=== PATIENT | female | born 1930 | race Caucasian/White ===

== ENCOUNTER 2020-06-16 12:50 | Observation (INO) ==
--- NOTE | 2020-06-16 14:26 | Emergency Department Note ---
Impression & Plan Cellulitis of both lower extremities, Chest pain, CKD (chronic kidney disease) ED Provider Note NAME: STACY RIBEIRO AGE: 89 SEX: F ARRIVES VIA: Walk-In INFORMANT: Patient, ED PROVIDER(S): Bentley Shaver MD CHIEF COMPLAINT: Cellulitis PLAN: Disposition: Admit MEDICAL DECISION MAKING: The patient is a pleasant 89-year-old woman with a past medical history of CHF who presents emergency department for evaluation and admission for bilateral lower extremity cellulitis have to be seen by her doctor on Wednesday urged to come to the hospital then but she reported she needed to be home for her son's birthday now presents accompanied by her daughter. She reports also having intermittent chest pain and shortness of breath over the past 6 months but does not have any chest pain or shortness of breath at this time. She also reports she was told her TSH was very elevated. Reports taking her thyroid medicine as prescribed. She denies any fevers, chills, cough, body aches, nausea, vomiting, diarrhea. She is agreeable to be admitted now. On arrival patient is no acute distress, afebrile stable vital signs. She has 2+ bilateral lower extremity pitting edema with erythema warmth and tenderness up till the proximal thigh bilaterally. There is serous weeping of both lower legs. EKG without evidence of acute ischemia. CXR negative for acute process. WBC, H/H, platelets wnl. Chemistry without acidosis. Lactate wnl. Potassium 3.3. AST 72, nonspecific. LFTs and electrolytes unremarkable. Troponin negative/undetectable. BNP wnl. TSH 97 however Free T4 only slightly low at 0.79 UA negative for infection. Given cellulitis encompassing at 2/3 of both legs in this elderly patient with comorbidities, reasonable to admit for further management. Order for Zosyn and Vancomycin to initiate treatment. Case was discussed with Dr. Vazquez, [facility] hospitalist, who will evaluate the patient for admission. Doppler ordered and performed en route to the floor and was negative. Triage Nursing notes reviewed and agree them. Additional history obtained from [facility] records. Prior medical records reviewed Vital Signs: reviewed and remarkable for no significant abnormalities Differential diagnosis: Cellulitis, abscess, MRSA infection, DVT, necrotizing fasciitis, dermatitis, drug eruption, allergic reaction, as well as other pathologies. ER treatment provided: See below. Diagnostics interpreted by me: ECG: NSR, 70 bpm, no ectopy, no overt ST elevation or depression. Cardiac Monitoring: An order for continuous cardiac monitoring was placed and demonstrated NSR, 70 bpm, no ectopy, Laboratory studies: See below Imaging studies: XR chest 1V portable HISTORY: 89 years-old Female SEPSIS acute sepsis COMPARISON: None TECHNIQUE: Portable AP view of the chest FINDINGS: Cardiac silhouette is moderately enlarged. Calcified plaque of the thoracic aorta. Mild right hemidiaphragmatic elevation. There is suggestion mild pleural thickening at the apices. No pneumothorax, pleural effusion, airspace consolidation or overt pulmonary edema. Degenerative changes of the shoulders and spine. IMPRESSION: Cardiomegaly without acute process. -- BILATERAL LOWER EXTREMITY VENOUS DOPPLER HISTORY: Acute pain and swelling of the lower extremities BLE swelling, pain COMPARISON STUDY: None. FINDINGS: There is normal compressibility, flow, and augmentation within the bilateral lower extremity deep venous systems. Subcutaneous edema of the lower legs. IMPRESSION: No DVT within the right or left lower extremity. Consultation(s): Case was discussed with Dr. Vazquez, [facility] hospitalist, who will evaluate the patient for admission. HPI: The patient is a pleasant 89-year-old woman with a past medical history of CHF who presents emergency department for evaluation and admission for bilateral lower extremity cellulitis have to be seen by her doctor on Wednesday urged to come to the hospital then but she reported she needed to be home for her son's birthday now presents accompanied by her daughter. She reports also having intermittent chest pain and shortness of breath over the past 6 months but does not have any chest pain or shortness of breath at this time. She also reports she was told her TSH was very elevated. Reports taking her thyroid medicine as prescribed. She denies any fevers, chills, cough, body aches, nausea, vomiting, diarrhea. She is agreeable to be admitted now. ROS: See above HPI for pertinent positives & negatives. A total of 10 systems reviewed and were otherwise negative. PAST MEDICAL HISTORY:See Below PAST SURGICAL HISTORY:See Below FAMILY HISTORY:See Below SOCIAL HISTORY:See Below HOME MEDICATIONS:See Below ALLERGIES:See Below VITALS:See Below PHYSICAL EXAMINATION: GENERAL: Awake, alert, fatigued-appearing, in no distress HENT: Normocephalic, atraumatic. Oropharynx unremarkable. EYES: Normal conjunctiva. Sclera non-icteric. NECK: Supple. No nuchal rigidity. FROM. No JVD. RESPIRATORY: Clear to auscultation. CARDIAC: Regular rate, normal rhythm. Extremities warm and well perfused. Pulses equal. ABDOMEN: Soft, non-distended. No tenderness to palpation. No rebound or guarding. No masses. RECTAL: Deferred. MUSCULOSKELETAL: Chest examination reveals no tenderness. The back is symmetrical on inspection without obvious abnormality. There is no CVA tenderness to palpation. No joint edema. LOWER EXTREMITIES: 2+ bilateral lower extremity pitting edema with erythema warmth and tenderness up till the proximal thigh bilaterally. There is serous weeping of both lower legs. NEURO: Normal sensorium. No sensory or motor deficits noted. SKIN: No rash or jaundice noted. ED COURSE: Critical Care: I have personally spent greater than 35 minutes of critical care time in the direct management of this patient. This includes bedside care, interpretation of diagnostic studies, and testing, discussion with consultants, patient, and family members, and other required patient management activities. This 35 minutes is in excess of all separately billable procedures. Bentley Shaver MD Past Med/Surg History Medical History CKD (chronic kidney disease) HTN (hypertension) Hypothyroidism Social History Smoking Status: Never smoker Hx Alcohol Use: No Hx Substance Use: No Preferred Language: [place] Communication Ability: Effective Child Adolescent Care Required: No Beliefs That Will Affect Care: None Current Living Situation: Family Other Information That Helps Us Care for You: No Feels Safe at Home: Yes Safety Concerns: Feels Safe At This Time Assistive Devices: Glasses and Walker Allergies Allergies Allergy/AdvReac Type Severity Reaction Status Date / Time No Known Allergies Allergy Verified 06/16/20 15:30 Home Meds Home Medications Medication Instructions Recorded Confirmed cephalexin 500 mg PO BID 06/16/20 06/16/20 furosemide 40 mg PO QAM 06/16/20 06/16/20 levothyroxine 100 mcg PO QAM 06/16/20 06/16/20 lisinopril-hydrochlorothiazide 1 tab PO DAILY 06/16/20 06/16/20 potassium chloride 10 meq PO DAILY 06/16/20 06/16/20 Results & Data (ED) Vital Signs Vital Signs - 24 hr 06/16/20 12:57 06/16/20 13:35 06/16/20 13:45 Temperature 36.8 C Temperature Source Oral Pulse Rate 69 71 71 Pulse Rate from SpO2 Sensor 71 71 Respiratory Rate 18 24 16 Respiratory Effort / Characteristics Non-Labored Spontaneous Respiratory Depth Normal Blood Pressure 140/85 146/75 H Blood Pressure Mean 103 103 Pulse Oximetry 98 96 95 Oxygen Delivery Method Room Air Sepsis Recent Fever Within 48 Hours No Sepsis New/Unexplained Change in Mental Status N/A Sepsis Action Taken by Nursing No Action Required 06/16/20 14:00 06/16/20 14:15 06/16/20 14:30 Temperature Temperature Source Pulse Rate 74 77 75 Pulse Rate from SpO2 Sensor 74 77 76 Respiratory Rate 18 21 20 Respiratory Effort / Characteristics Respiratory Depth Blood Pressure 142/94 H 157/75 H Blood Pressure Mean 119 90 Pulse Oximetry 97 98 97 Oxygen Delivery Method Sepsis Recent Fever Within 48 Hours Sepsis New/Unexplained Change in Mental Status Sepsis Action Taken by Nursing Laboratory Data Attestation: I reviewed the patient's lab results. Result diagrams: 06/16/20 13:30 06/16/20 13:30 Lab Results 06/16/20 06/16/20 06/16/20 Range/Units 13:30 13:30 13:30 WBC 8.20 (4.8-10.8) K/uL RBC 4.29 (4.2-5.4) M/uL Hgb 13.3 (12.0-16.0) g/dL Hct 40.3 (37-47) % MCV 93.9 (80-100) fL MCH 31.0 (25-34) pg MCHC 33.0 (32-36) g/dL RDW Std Deviation 53.2 H (36.4-46.3) fL RDW Coeff of Mabel 15.5 H (11.5-14.5) % Plt Count 289 (130-400) K/uL MPV 10.9 H (7.4-10.4) fL Immature Gran % (Auto) 0.6 % Neut % (Auto) 69.3 % Lymph % (Auto) 17.4 % [place] % (Auto) 11.3 % Eos % (Auto) 1.0 % Baso % (Auto) 0.4 % Neut # (Auto) 5.68 (1.4-6.5) K/uL Lymph # (Auto) 1.43 (1.2-3.4) K/uL [place] # (Auto) 0.93 H (0.11-0.59) K/uL Eos # (Auto) 0.08 (0-0.5) K/uL Baso # (Auto) 0.03 (0-0.2) K/uL Immature Gran # (Auto) 0.05 H (0.00-0.02) K/uL PT 10.7 (9.0-12.0) Seconds INR 1.0 (0.9-1.1) APTT 29.3 (21.0-31.0) Seconds PTT Ratio 1.1 D-Dimer (0-500) ug/L FEU Sodium (136-145) mmol/L Potassium (3.5-5.1) mmol/L Chloride (98-107) mmol/L Carbon Dioxide (21-32) mmol/L Anion Gap (3-11) BUN (7-18) mg/dl Creatinine (0.6-1.2) mg/dl Est Cr Clr Drug Dosing Est GFR ( Amer) Est GFR (Non-Af Amer) BUN/Creatinine Ratio (10-20) Glucose (70-99) mg/dl Lactate (0.4-2.0) mmol/L Calcium (8.5-10.1) mg/dl Magnesium (1.8-2.4) mg/dl Total Bilirubin (0.2-1) mg/dl AST (15-37) U/L ALT (12-78) U/L Alkaline Phosphatase (45-117) U/L Troponin I (0-0.045) ng/ml NT-Pro-B Natriuret Pep (0-1800) pg/ml Total Protein (6.4-8.2) gm/dl Albumin (3.4-5.0) gm/dl Globulin (2.5-4.0) gm/dl Albumin/Globulin Ratio (0.9-2) Lipase (73-393) U/L Procalcitonin < 0.05 (0-0.5) ng/ml TSH (0.300-4.500) uIu/ml Free T4 (0.8-1.6) ng/dl 06/16/20 06/16/2006/16/20 Range/Units 13:30 13:30 14:50 WBC (4.8-10.8) K/uL RBC (4.2-5.4) M/uL Hgb (12.0-16.0) g/dL Hct (37-47) % MCV (80-100) fL MCH (25-34) pg MCHC (32-36) g/dL RDW Std Deviation (36.4-46.3) fL RDW Coeff of Mabel (11.5-14.5) % Plt Count (130-400) K/uL MPV (7.4-10.4) fL Immature Gran % (Auto) % Neut % (Auto) % Lymph % (Auto) % [place] % (Auto) % Eos % (Auto) % Baso % (Auto) % Neut # (Auto) (1.4-6.5) K/uL Lymph # (Auto) (1.2-3.4) K/uL [place] # (Auto) (0.11-0.59) K/uL Eos # (Auto) (0-0.5) K/uL Baso # (Auto) (0-0.2) K/uL Immature Gran # (Auto) (0.00-0.02) K/uL PT (9.0-12.0) Seconds INR (0.9-1.1) APTT (21.0-31.0) Seconds PTT Ratio D-Dimer 1470 H* (0-500) ug/L FEU Sodium 139 (136-145) mmol/L Potassium 3.3 L (3.5-5.1) mmol/L Chloride 103 (98-107) mmol/L Carbon Dioxide 33 H (21-32) mmol/L Anion Gap 3.0 (3-11) BUN 36 H (7-18) mg/dl Creatinine 1.13 (0.6-1.2) mg/dl Est Cr Clr Drug Dosing Not Reportable Est GFR ( Amer) 49.9 Est GFR (Non-Af Amer) 43.1 BUN/Creatinine Ratio 32.1 H (10-20) Glucose 93 (70-99) mg/dl Lactate 0.8 (0.4-2.0) mmol/L Calcium 9.4 (8.5-10.1) mg/dl Magnesium 2.1 (1.8-2.4) mg/dl Total Bilirubin 0.7 (0.2-1) mg/dl AST 72 H (15-37) U/L ALT 60 (12-78) U/L Alkaline Phosphatase 73 (45-117) U/L Troponin I < 0.015 (0-0.045) ng/ml NT-Pro-B Natriuret Pep 136 (0-1800) pg/ml Total Protein 7.7 (6.4-8.2) gm/dl Albumin 3.7 (3.4-5.0) gm/dl Globulin 4.0 (2.5-4.0) gm/dl Albumin/Globulin Ratio 0.9 (0.9-2) Lipase 253 (73-393) U/L Procalcitonin (0-0.5) ng/ml TSH 97.600 H (0.300-4.500) uIu/ml Free T4 0.79 L (0.8-1.6) ng/dl Administered Medications Heparin Sodium (Porcine) (Heparin Sod 5,000 Unit/0.5 Ml Vial) 5,000 units SQ Q8 DAMI Stop: 07/16/20 21:59 Last Admin: 06/16/20 21:23 Dose: 5,000 units Documented by: [id number] Piperacillin Sod/Tazobactam (Sod 3.375 gm/ Dextrose) 115 mls @ 28.75 mls/hr IV [facility]; Protocol Stop: 06/23/20 17:14 Last Infusion: 06/16/20 23:46 Dose: 0 mls/hr Documented by: [id number] Admin: 06/16/20 19:46 Dose: 28.8 mls/hr Documented by: [id number] Discontinued Medications Piperacillin Sod/Tazobactam Sod (Zosyn) 4.5 gm in 120 mls @ 240 mls/hr IV NOW ONE Stop: 06/16/20 15:27 Last Infusion: 06/16/20 15:55 Dose: 0 mls/hr Documented by: [id number] Admin: 06/16/20 15:13 Dose: 240 mls/hr Documented by: [id number] Vancomycin HCl 1,250 mg/ (Sodium Chloride) 525 mls @ 200 mls/hr IV NOW ONE Stop: 06/16/20 18:11 Last Infusion: 06/16/20 19:07 Dose: 0 mls/hr Documented by: [id number] Admin: 06/16/20 16:20 Dose: 200 mls/hr Documented by: [id number] Miscellaneous Information (Patient's Allergy Info Needs Entered) 1 ea N/A Q30M DAMI Stop: 06/16/20 17:46 Last Admin: 06/16/20 18:04 Dose: Not Given Documented by: [id number] Admin: 06/16/20 15:37 Dose: 1 ea Documented by: [id number] Potassium Chloride (Potassium Chloride Crtab 20 Meq Tabcr) 20 meq PO NOW STA Stop: 06/16/20 15:15 Last Admin: 06/16/20 15:35 Dose: 20 meq Documented by: [id number] Discharge Plan Visit Data Chief Complaint: Illness Stated Complaint: CHF, THYROID@100, WHITE BC HIGH, INECTION, ED Provider: Bentley Shaver Discharge Problem: Cellulitis of both lower extremities, Chest pain, CKD (chronic kidney disease) Patient Disposition: Admitted As Inpatient Discharge Instructions Interventions: ED Discharge Assessment Last Done: 06/16/20 16:32
[2020-06-16 14:29] LABS: Basophils # (auto) 0.03 K/uL (0-0.2); Basophils % (auto) 0.4 %; Eosinophils # (auto) 0.08 K/uL (0-0.5); Hematocrit (blood only) 40.3 % (37-47); Hemoglobin 13.3 g/dL (12.0-16.0); Immature Granulocytes # (auto) 0.05 K/uL (0.00-0.02); Immature Granulocytes % (auto) 0.6 %; Lymphocytes # (auto) 1.43 K/uL (1.2-3.4); Lymphocytes % (auto) 17.4 %; Mean Corpuscular Volume 93.9 fL (80-100); Mean Platelet Volume 10.9 fL (7.4-10.4); Monocytes # (auto) 0.93 K/uL (0.11-0.59); Monocytes % (auto) 11.3 %; Neutrophils # (auto) 5.68 K/uL (1.4-6.5); Neutrophils % (auto) 69.3 %; Platelet Count 289 K/uL (130-400); RDW Coefficient of Variation 15.5 % (11.5-14.5); RDW Standard Deviation 53.2 fL (36.4-46.3); Red Blood Count 4.29 M/uL (4.2-5.4)
[2020-06-16 14:37] LABS: Albumin Level 3.7 gm/dl (3.4-5.0); Aspartate Aminotransferase 72 U/L (15-37); BUN Creatinine Ratio 32.1 (10-20); Blood Urea Nitrogen 36 mg/dl (7-18); Calcium 9.4 mg/dl (8.5-10.1); Carbon Dioxide 33 mmol/L (21-32); Chloride 103 mmol/L (98-107); Est GFR (African American) 49.9; Est GFR (Non-African American) 43.1; Glucose 93 mg/dl (70-99); Lipase 253 U/L (73-393); Magnesium 2.1 mg/dl (1.8-2.4); Potassium 3.3 mmol/L (3.5-5.1); Sodium 139 mmol/L (136-145)
[2020-06-16 14:43] LABS: Partial Thromboplastin Ratio 1.1; Partial Thromboplastin Time 29.3 Seconds (21.0-31.0); Prothrombin Time 10.7 Seconds (9.0-12.0)
--- NOTE | 2020-06-16 14:43 | XRay Report ---
XR chest 1V portable HISTORY: 89 years-old Female SEPSIS acute sepsis COMPARISON: None TECHNIQUE: Portable AP view of the chest FINDINGS: Cardiac silhouette is moderately enlarged. Calcified plaque of the thoracic aorta. Mild right hemidia phragmatic elevation. There is suggestion mild pleural thickening at the apices. No pneumothorax, ple ural effusion, airspace consolidation or overt pulmonary edema. Degenerative changes of the shoulders and spine. IMPRESSION: Cardiomegaly without acute process. ACT 112: Negative or not required by law. The above report was generated using voice recognition software. It may contain grammatical, syntax o r spelling errors. Electronically signed by: Luca Jordan M.D. 06/16/2020 2:42 PM
[2020-06-16 14:49] LABS: Alanine Aminotransferase 60 U/L (12-78); Albumin Globulin Ratio 0.9 (0.9-2); Alkaline Phosphatase 73 U/L (45-117); Bilirubin,Total 0.7 mg/dl (0.2-1); NT Pro B Type Natriuretic Pept 136 pg/ml (0-1800); Total Protein 7.7 gm/dl (6.4-8.2); Troponin I < 0.015 ng/ml (0-0.045)
[2020-06-16] MEDS ORDERED: PIPERACILLIN/TAZOBACTAM 4.5 GM/120 ML BAG IV ONE (14:58)
[2020-06-16] MEDS ORDERED: PIPERACILL/TAZOBAC CONSULT ACTIVE PRN ×2 (14:58→17:15)
[2020-06-16 15:02] LABS: T4 Free Thyroxine 0.79 ng/dl (0.8-1.6)
[2020-06-16] MEDS ORDERED: MAGNESIUM HYDROXIDE SUSP 30 ML UDC PO PRN (15:05)
[2020-06-16] MEDS ORDERED: ONDANSETRON INJ 2 MG/ML 2 ML VIAL IV PRN (15:05)
[2020-06-16] MEDS ORDERED: ACETAMINOPHEN 325 MG TAB PO PRN (15:05)
[2020-06-16] MEDS ORDERED: ALUMINUM/MAGNESIUM SUSP 30 ML UDC PO PRN (15:05)
[2020-06-16] MEDS ORDERED: POLYETHYLENE (MIRALAX) 17 GM PACK PO PRN (15:05)
[2020-06-16] MEDS ORDERED: NITROGLYCERIN SL 0.4 MG/TAB TAB SL PRN (15:05)
[2020-06-16] MEDS ORDERED: POTASSIUM CHLORIDE CRTAB 20 MEQ TABCR PO STA (15:14)
--- NOTE | 2020-06-16 15:17 | History & Physical Report ---
Date of Service June 16, 2020 Assessment & Plan (1) Lower extremity cellulitis: presents with bilateral lower ext cellulitis has extensive lower ext edema upto bilateral upper thigh ordered for IV Zosyn and vanco Vanco can be d/brian if MRSA screen negative lower ext Doppler negative for dvt BILATERAL LOWER EXT EDEMA : chronic skin changes suggestive of venous stasis /venous insufficiency vs lymphedema pt is on Lasix and HCTZ /ACEI -continued ordered ECHO assess LV function (2) Chest pain: atypical for angina pain is sharp , changes with position , EKG no ischemic change has been chest pain free since today AM monitor in tele ECHO ordered (3) HTN (hypertension): continue home meds (4) Hypothyroidism: severe hypothyroidism with TSH > 97 Free T4 -.79 pt was on Levothyroxine 100 mcg daily -reports of taking her meds regularly will increase Levothyroxine 150 mcg daily repeat TSH in 4-6 weeks will benefit with out patient Endocrine follow up with Thyroid function monitoring CODE STATUS : FULL CODE DVT PROPHYLAXIS : sub q heparin DISPOSITION ; expected to be discharged home when medically stable will need PT/OT eval prior to dc social service consulted for discharge planning /pt will benefit with home health visiting nurse . History of Present Illness Chief Complaint: CHEST PAIN /LEG SWELLING Primary Care Provider: Etienne Flores DO This is a 89 yo F with past medical hx of Hypertension , hypothyroidism , chronic lower ext venous insufficiency -presented to ER with complain of intermittent central sharp chest pain , worsening of bilateral lower ext edema , with redness and pain . Pt reports for past 1 week , she has been experiencing sharp chest pain /feeling like food getting stuck in the chest pain lasts for 2-3 min , no associated symptom of cough , SOB , dizzy spell or palpitation . pt has chronic bilateral lower ext swelling , which has progressively became worse in past 2-3 weeks, noted fluid seeping from the skin Leg swelling extended to her both upper thigh , last 2-3 days her legs been red and more swollen and painful . no fever or chills pt reports feeling more fatigue recently , experiencing LINTON with minimal activity Allergies Allergy/AdvReac Type Severity Reaction Status Date / Time No Known Allergies Allergy Verified 06/16/20 15:30 Home Medications Home Medications Medication Instructions Recorded Confirmed Type cephalexin 500 mg PO BID 06/16/20 06/16/20 History furosemide 40 mg PO QAM 06/16/20 06/16/20 History levothyroxine 100 mcg PO QAM 06/16/20 06/16/20 History lisinopril-hydrochlorothiazide 1 tab PO DAILY 06/16/20 06/16/20 History potassium chloride 10 meq PO DAILY 06/16/20 06/16/20 History Past Med/Surg History Social History Smoking Status: Never smoker Hx Alcohol Use: No Hx Substance Use: No Preferred Language: [place] Citizen Communication Ability: Effective Contract Specialist Required: No Beliefs That Will Affect Care: None Current Living Situation: Family Other Information That Helps Us Care for You: No Feels Safe at Home: Yes Safety Concerns: Feels Safe At This Time Assistive Devices: Glasses and Walker Review of Systems Review of Systems: All systems reviewed & are unremarkable except as noted in HPI & below Respiratory: + dyspnea and + dyspnea on exertion Cardiovascular: + dyspnea, + dyspnea on exertion and + orthopnea Musculoskeletal: + swelling (bilateral leg swelling ) and + problem reported (pain and swellling on both legs ) Neurologic: + generalized weakness Physical Exam Constitutional: WD/WN, vitals as above no acute distress Eyes: + anicteric sclerae ENMT: external ear and nose normal, oropharynx normal Neck: trachea midline, no thyromegaly Respiratory: Auscultation: + diminished lung sounds, + crackles and + rales (fine crackles /rales at base ); no wheezes Cardiovascular: Rate/Rhythm: regular rate and regular rhythm Extremities: + edema ( bilateral lower extremity pitting edemea extending to upper thigh ) Gastrointestinal (Abdomen): Percussion/Palpation: abdomen soft; abdomen nontender Musculoskeletal: Extremities: + extremities abnormal to inspection (bilateral lower ext , edema , swelling and erythema ) Skin: chronic venous stasis change in bilateral feet and lower ext Neurologic: PERRL, EOMI, accommodation nl, no face palsy, no dysarthria Psychiatric: A+Ox3, euthymic affect Results & Data Results & Data ([facility]) Vital Signs (Past 12 Hours) Vital Signs Temp Pulse Resp BP Pulse Ox 06/16/20 14:30 75 20 157/75 H 97 06/16/20 14:15 77 21 98 06/16/20 14:00 74 18 142/94 H 97 06/16/20 13:45 71 16 95 06/16/20 13:35 71 24 146/75 H 96 06/16/20 12:57 36.8 C 69 18 140/85 98 Code Status & VTE Plan VTE Prophylaxis Plan VTE Prophylaxis will be ordered: Yes (1) Lower extremity cellulitis Laterality: unspecified laterality Qualified Code(s): L03.119 - Cellulitis of unspecified part of limb (2) Chest pain Chest pain type: unspecified Qualified Code(s): R07.9 - Chest pain, unspecified (3) HTN (hypertension) Hypertension type: essential hypertension Qualified Code(s): I10 - Essential (primary) hypertension (4) Hypothyroidism Hypothyroidism type: unspecified Qualified Code(s): E03.9 - Hypothyroidism, unspecified
[2020-06-16] MEDS ORDERED: VANCOMYCIN HCL 1,250 MG in SODIUM CHLORIDE 0.9% 500 ML IV ONE (15:34)
[2020-06-16] MEDS ORDERED: VANCOMYCIN CONSULT ACTIVE PRN ×2 (15:34→17:15)
[2020-06-16] MEDS: PATIENT'S ALLERGY INFO NEEDS ENTERED SCH ×2 (15:37→18:04)
[2020-06-16 15:45] LABS: D Dimer 1470 ug/L FEU (0-500)
--- NOTE | 2020-06-16 17:01 | Ultrasound Report ---
BILATERAL LOWER EXTREMITY VENOUS DOPPLER HISTORY: Acute pain and swelling of the lower extremities BLE swelling, pain COMPARISON STUDY: None. FINDINGS: There is normal compressibility, flow, and augmentation within the bilateral lower extremit y deep venous systems. Subcutaneous edema of the lower legs. IMPRESSION: No DVT within the right or left lower extremity. ACT 112: Negative or not required by law. Electronically signed by: Luca Jordan M.D. 06/16/2020 5:00 PM
[2020-06-16] MEDS ORDERED: VANCOMYCIN HCL 1,000 MG in SODIUM CHLORIDE 0.9% 250 ML IV SCH (17:15)
[2020-06-16] MEDS ORDERED: PATIENT'S HEIGHT AND/OR WEIGHT NEEDED SCH (17:30)
[2020-06-16 17:41] LABS: Appearance Urine Clear (Clear); Bilirubin Urine Negative (Negative); Blood Urine Negative (Negative); Color Urine Yellow; Glucose Urine UA Negative (Negative); Ketones Urine Negative (Negative); Leukocyte Esterase Urine Negative (Negative); Nitrite Urine Negative (Negative); Protein Urine Negative (Negative); Specific Gravity Urine 1.015 (1.000-1.030); Urobilinogen Urine Negative (Negative)
--- NOTE | 2020-06-16 17:52 | Pharmacy Report ---
Pharmacy Abx Dose Short Note - Date of Service June 16, 2020 - Assessment & Plan Assessment 89 year old F receiving vancomycin/zosyn for treatment of cellulitis Day # 1 of antimicrobial therapy. Plan Vancomycin * patient received vancomycin 1250 mg IV x 1 (19.5 mg/kg) * patient's population pharmacokinetics suggest half life of 23 hours with elimination constant of 0.03 hr-1 * will schedule random level tomorrow morning as uncertain baseline kidney function. Zosyn * Zosyn 4.5 gm IV x 1 then 3.375 gm IV q8 hours Pharmacy will continue to follow and will adjust dose/frequency as necessary. Thank you.
[2020-06-16] MEDS: PIPERACILLIN/TAZOBACTAM 3.375 GM in DEXTROSE 5% 100 ML IV SCH (19:46)
[2020-06-16] MEDS: HEPARIN SOD 5,000 UNIT/0.5 ML VIAL SQ SCH (21:23)
[2020-06-17] MEDS: PIPERACILLIN/TAZOBACTAM 3.375 GM in DEXTROSE 5% 100 ML IV SCH ×3 (04:31→20:42)
[2020-06-17] MEDS: HEPARIN SOD 5,000 UNIT/0.5 ML VIAL SQ SCH ×3 (06:19→20:43)
[2020-06-17] MEDS: LEVOTHYROXINE SODIUM 150 MCG TABLET PO SCH (06:19)
--- NOTE | 2020-06-17 07:37 | Hospitalist Progress Note ---
Date of Service June 17, 2020 Assessment & Plan (1) Lower extremity cellulitis: presents with bilateral lower ext cellulitis has extensive lower ext edema up to bilateral upper thigh ordered for IV Zosyn and vanco Vanco can be d/c'd if MRSA screen negative lower ext Doppler negative for dvt BILATERAL LOWER EXT EDEMA : chronic skin changes suggestive of venous stasis /venous insufficiency vs lymphedema pt is on Lasix and HCTZ /ACEI -continued ordered ECHO assess LV function (2) Chest pain: atypical for angina pain is sharp , changes with position , EKG no ischemic change has been chest pain free since today AM monitor in tele ECHO ordered (3) HTN (hypertension): continue home meds (4) Hypothyroidism: severe hypothyroidism with TSH > 97 Free T4 -.79 pt was on Levothyroxine 100 mcg daily -reports of taking her meds regularly will increase Levothyroxine 150 mcg daily repeat TSH in 4-6 weeks will benefit with out patient Endocrine follow up with Thyroid function monitoring CODE STATUS : FULL CODE DVT PROPHYLAXIS : sub q heparin DISPOSITION ; expected to be discharged home when medically stable will need PT/OT eval prior to dc social service consulted for discharge planning /pt will benefit with home health visiting nurse. Labs reviewed ROS-No Headache, No Visual Changes, No Nausea, No Vomiting, No Fever, No Chills, No Neck Pain or Stiffness, No Chest Pain, No Palpitations, No SOB, No [place], No Cough, No Sputum, No Wheezing, No Abdominal Pain, No Diarrhea, No Hematemesis, No Hemoptysis, No Unexpected Weight Loss, No Flank pain, No Melena, No Hematochezia, No Frequency, No Urgency, No Burning, No Hematuria, No Rashes, No Diaphoresis. Appetite is Normal Physical Exam Gen-AAO x 3, NAD, Afebrile Head-NCAT, EOMI, PERRLA, Anicteric Sclera, No Posterior Pharyngeal Erythema Neck-Supple, No JVD, No Thyromegaly, No Masses, No LAD, No Bruits Lungs-Clear to Auscultation Bilaterally, No Rales, No Rhonchi, No Wheezing, No Crepitus Chest-No S4, +S1, +S2, No S3, No Murmurs, No Rubs, No Gallops, No Ectopy Abdomen-Soft, Bowel Sounds Present, Non Tender, Non Distended, No Hepatomegaly, No Splenomegaly, No Palpable Masses, No Rebound, No Rigidity, No Guarding Musculoskeletal-Full Range of Motion Bilaterally, No CVAT Extremities-No Cyanosis, No Clubbing, No Edema, +Stasis Dermatitis Nuero-Cranial Nerves II-XII grossly intact, Motor WNL, DTRs WNL, Strength WNL, Non Focal Psych-Normal Mood Admission and Anticipated Discharge Date Admission Date: June 16, 2020 Results & Data Results & Data ([facility]) Vital Signs (Past 12 Hours) Vital Signs Temp Pulse Resp BP Pulse Ox 06/17/20 07:06 36.6 C 64 18 103/61 92 06/17/20 04:11 36.8 C 71 18 114/65 97 06/16/20 23:50 36.6 C 71 17 100/50 L 95 (1) Lower extremity cellulitis Laterality: unspecified laterality Qualified Code(s): L03.119 - Cellulitis of unspecified part of limb (2) HTN (hypertension) Hypertension type: essential hypertension Qualified Code(s): I10 - Essential (primary) hypertension (3) Hypothyroidism Hypothyroidism type: unspecified Qualified Code(s): E03.9 - Hypothyroidism, unspecified
[2020-06-17] MEDS: LISINOPRIL/HCTZ 20/25MG 1 TAB PO SCH (07:58)
[2020-06-17] MEDS: POTASSIUM CHLORIDE 10 MEQ TABCR PO SCH (07:58)
[2020-06-17] MEDS: ASPIRIN 81 MG ECTAB PO SCH (07:58)
[2020-06-17] MEDS: FUROSEMIDE 40 MG TAB PO SCH (07:59)
[2020-06-17 08:04] LABS: BUN Creatinine Ratio 23.4 (10-20); Calcium 7.9 mg/dl (8.5-10.1); Creatinine Clr Calc Pharmacy 22.6 ml/min; Est GFR (Non-African American) 38.9; Potassium 3.4 mmol/L (3.5-5.1)
--- NOTE | 2020-06-17 13:08 | Electrocardiogram Report ---
Test Reason : Blood Pressure : / mmHG Vent. Rate : 070 BPM Atrial Rate : 070 BPM P-R Int : 220 ms QRS Dur : 098 ms QT Int : 398 ms P-R-T Axes : 059 -11 053 degrees QTc Int : 429 ms Sinus rhythm with 1st degree A-V block Possible Left atrial enlargement Anteroseptal infarct , age undetermined Abnormal ECG No previous ECGs available Confirmed by Gualberto Chan ([id number]) on 06/17/2020 1:08:21 PM Referred By: Etienne Flores Confirmed By:Gualberto Chan
[2020-06-17] MEDS: EUCERIN CR 120 GM JAR EXT SCH (20:42)
[2020-06-18] MEDS: PIPERACILLIN/TAZOBACTAM 3.375 GM in DEXTROSE 5% 100 ML IV SCH (04:02)
[2020-06-18] MEDS: LEVOTHYROXINE SODIUM 150 MCG TABLET PO SCH (04:03)
[2020-06-18] MEDS: HEPARIN SOD 5,000 UNIT/0.5 ML VIAL SQ SCH (05:01)
[2020-06-18] MEDS: ASPIRIN 81 MG ECTAB PO SCH (07:57)
[2020-06-18] MEDS: LISINOPRIL/HCTZ 20/25MG 1 TAB PO SCH (07:57)
[2020-06-18] MEDS: FUROSEMIDE 40 MG TAB PO SCH (07:57)
[2020-06-18] MEDS: EUCERIN CR 120 GM JAR EXT SCH (07:57)
[2020-06-18] MEDS: POTASSIUM CHLORIDE 10 MEQ TABCR PO SCH (07:57)
[2020-06-18 08:11] LABS: Hematocrit (blood only) 36.5 % (37-47); Hemoglobin 11.7 g/dL (12.0-16.0); Mean Corpuscular Hemoglobin 30.4 pg (25-34); Mean Corpuscular Hgb Conc 32.1 g/dL (32-36); Mean Corpuscular Volume 94.8 fL (80-100); Mean Platelet Volume 10.9 fL (7.4-10.4); Platelet Count 268 K/uL (130-400); RDW Coefficient of Variation 15.8 % (11.5-14.5); RDW Standard Deviation 54.6 fL (36.4-46.3); Red Blood Count 3.85 M/uL (4.2-5.4); White Blood Count 7.35 K/uL (4.8-10.8)
[2020-06-18 08:36] LABS: Albumin Level 2.8 gm/dl (3.4-5.0); Calcium 8.3 mg/dl (8.5-10.1); Creatinine Clr Calc Pharmacy 22.8 ml/min; Est GFR (African American) 45.5; Est GFR (Non-African American) 39.2; Potassium 3.1 mmol/L (3.5-5.1)
[2020-06-18 08:38] LABS: Albumin Globulin Ratio 0.8 (0.9-2); Bilirubin,Total 0.5 mg/dl (0.2-1); Globulin 3.4 gm/dl (2.5-4.0); Total Protein 6.2 gm/dl (6.4-8.2)
--- NOTE | 2020-06-18 10:23 | Discharge Summary ---
Date of Service June 18, 2020 Admission HPI Per Admitting Provider This is a 89 yo F with past medical hx of Hypertension , hypothyroidism , chronic lower ext venous insufficiency -presented to ER with complain of intermittent central sharp chest pain , worsening of bilateral lower ext edema , with redness and pain . Pt reports for past 1 week , she has been experiencing sharp chest pain /feeling like food getting stuck in the chest pain lasts for 2-3 min , no associated symptom of cough , SOB , dizzy spell or palpitation . pt has chronic bilateral lower ext swelling , which has progressively became worse in past 2-3 weeks, noted fluid seeping from the skin Leg swelling extended to her both upper thigh , last 2-3 days her legs been red and more swollen and painful . no fever or chills pt reports feeling more fatigue recently , experiencing LINTON with minimal activi ty Admission Exam Per Admitting Provider Constitutional: WD/WN, vitals as above no acute distress Eyes: + anicteric sclerae ENMT: external ear and nose normal, oropharynx normal Neck: trachea midline, no thyromegaly Respiratory: Auscultation: + diminished lung sounds, + crackles and + rales (fine crackles /rales at base ); no wheezes Cardiovascular: Rate/Rhythm: regular rate and regular rhythm Extremities: + edema ( bilateral lower extremity pitting edemea extending to upper thigh ) Gastrointestinal (Abdomen): Percussion/Palpation: abdomen soft; abdomen nontender Musculoskeletal: Extremities: + extremities abnormal to inspection (bilateral lower ext , edema , swelling and erythema ) Skin: chronic venous stasis change in bilateral feet and lower ext Neurologic: PERRL, EOMI, accommodation nl, no face palsy, no dysarthria Psychiatric: A+Ox3, euthymic affect Principal Diagnosis (1) Lower extremity cellulitis: (2) Chest pain: (3) HTN (hypertension): (4) Hypothyroidism: Discharge Exam See below Discharge Data Allergies Allergy/AdvReac Type Severity Reaction Status Date / Time amoxicillin Allergy Unknown RASH Verified 06/17/20 07:52 tetracycline Allergy Unknown RASH Verified 06/17/20 07:52 Consultations 06/16/20 14:58 ED Decision to Admit Stat 06/16/20 15:09 Consult Case Management - Discharge Planning Routine Ordered Studies 06/16/20 14:58 US venous doppler LE Stat Current Diagnoses Hypothyroidism, unspecified (06/16/20) Essential (primary) hypertension (06/16/20) Cellulitis of unspecified part of limb (06/16/20) Chest pain, unspecified (06/16/20) Allergies amoxicillin Allergy (Unknown, Verified 06/17/20 07:52) RASH tetracycline Allergy (Unknown, Verified 06/17/20 07:52) RASH Height/Weight/Isolation Height 4 ft 8 in Weight 61.2 kg Chemistry 06/16/20 06/17/20 06/18/20 13:30 07:13 07:07 Sodium 139 140 140 Potassium 3.3 L 3.4 L 3.1 L Chloride 103 107 104 Carbon Dioxide 33 H 28 28 Anion Gap 3.0 5.0 7.0 BUN 36 H 29 H 29 H Creatinine 1.13 1.23 H 1.22 H Glucose 93 95 93 Urinalysis 06/16/20 Unknown Urine Color Yellow Urine Appearance Clear Urine pH 7.0 Ur Specific [place] 1.015 Urine Protein Negative Urine Glucose (UA) Negative Urine Ketones Negative Urine Blood Negative Urine Nitrite Negative Urine Bilirubin Negative Microbiology 06/16/20 14:50 Blood Aerobic Blood Culture - Preliminary No growth in Aerobic bottle after 24 hours. 06/16/20 14:50 Blood Anaerobic Blood Culture - Preliminary No growth in Anaerobic bottle after 24 hours. 06/16/20 14:38 Blood Aerobic Blood Culture - Preliminary No growth in Aerobic bottle after 24 hours. 06/16/20 14:38 Blood Anaerobic Blood Culture - Preliminary No growth in Anaerobic bottle after 24 hours. Hospital Course (1) Lower extremity cellulitis: (2) Chest pain: (3) HTN (hypertension): (4) Hypothyroidism: (1) Lower extremity cellulitis: presents with bilateral lower ext cellulitis has extensive lower ext edema up to bilateral upper thigh ordered for IV Zosyn and vanco Vanco d/c'd if MRSA screen negative lower ext Doppler negative for dvt BILATERAL LOWER EXT EDEMA : chronic skin changes suggestive of venous stasis /venous insufficiency vs lymphedema pt is on Lasix and HCTZ /ACEI -continued ordered ECHO assess LV function (2) Chest pain: atypical for angina pain is sharp , changes with position , EKG no ischemic change has been chest pain free since today AM monitor in tele ECHO ordered, EF 55-60% Trops all Neg (3) HTN (hypertension): continue home meds (4) Hypothyroidism: severe hypothyroidism with TSH > 97 Free T4 -.79 pt was on Levothyroxine 100 mcg daily -reports of taking her meds regularly will increase Levothyroxine 150 mcg daily repeat TSH in 4-6 weeks will benefit with out patient Endocrine follow up with Thyroid function monitoring CODE STATUS : FULL CODE DVT PROPHYLAXIS : sub q heparin DISPOSITION ; DC Home today c [facility] for safety checks Labs reviewed ROS-No Headache, No Visual Changes, No Nausea, No Vomiting, No Fever, No Chills, No Neck Pain or Stiffness, No Chest Pain, No Palpitations, No SOB, No L[place], No Cough, No Sputum, No Wheezing, No Abdominal Pain, No Diarrhea, No Hematemesis, No Hemoptysis, No Unexpected Weight Loss, No Flank pain, No Melena, No Hematochezia, No Frequency, No Urgency, No Burning, No Hematuria, No Rashes, No Diaphoresis. Appetite is Normal Physical Exam Gen-AAO x 3, NAD, Afebrile Head-NCAT, EOMI, PERRLA, Anicteric Sclera, No Posterior Pharyngeal Erythema Neck-Supple, No JVD, No Thyromegaly, No Masses, No LAD, No Bruits Lungs-Clear to Auscultation Bilaterally, No Rales, No Rhonchi, No Wheezing, No Crepitus Chest-No S4, +S1, +S2, No S3, No Murmurs, No Rubs, No Gallops, No Ectopy Abdomen-Soft, Bowel Sounds Present, Non Tender, Non Distended, No Hepatomegaly, No Splenomegaly, No Palpable Masses, No Rebound, No Rigidity, No Guarding Musculoskeletal-Full Range of Motion Bilaterally, No CVAT Extremities-No Cyanosis, No Clubbing, No Edema, +Stasis Dermatitis, At baseline per patient Nuero-Cranial Nerves II-XII grossly intact, Motor WNL, DTRs WNL, Strength WNL, Non Focal Psych-Normal Mood Total Time Total Time Spent Total Time Spent (In Minutes): 45 min Total Time Includes: Examination of the Patient, Discharge Planning, Medication Reconciliation and Communication With Other Providers Discharge Plan Discharge Items Patient Disposition: Home - Self-Care Reason For Visit: CHEST PAIN/SOB/CELLULITIS OF LEGS Discharge Diagnosis: (1) Lower extremity cellulitis: (2) Chest pain: (3) HTN (hypertension): (4) Hypothyroidism Condition on Discharge: Good Health Concerns: Worsening Cellulitis Activity: Resume your previous activity Lifting: None and Gradually increase as tolerated Bathing: No limitations Exercise/Sports: None Driving/Machine Use: No limitations Weightbearing: Full weightbearing Non-emergency contact: Primary Care Provider Call non-emergency contact if: you have any medication questions and your symptoms worsen Follow-up/Referrals: Etienne Flores DO [Primary Care Provider] - (Date & Time 06/21/2020 11:20 AM Provider Etienne Flores DO Department [facility] ) Diet: Heart Healthy Addtl Attending Provider Instructions: Keep legs elevated as much as possible Pending Studies at Discharge: No Stand-Alone Forms: My [employer], Smoking Cessation Medications and DC Order Prescriptions: New levothyroxine [Synthroid] 150 mcg Tablet 150 mcg PO DAILYBB Qty: 30 RF: 0 potassium chloride [Klor-Con M10] 10 mEq Tablet,Er Particles/Crystals 20 meq PO DAILY Qty: 30 RF: 0 cefdinir 300 mg capsule 300 mg PO Q12H 8 Days Qty: 16 RF: 0 Continued furosemide 40 mg tablet 40 mg PO QAM RF: 0 lisinopril-hydrochlorothiazide 20-25 mg tablet 1 tab PO DAILY RF: 0 Discontinued potassium chloride 10 mEq capsule, extended release 10 meq PO DAILY RF: 0 levothyroxine 100 mcg tablet 100 mcg PO QAM RF: 0 cephalexin 500 mg capsule 500 mg PO BID RF: 0 Discharge Orders: Discharge Order (Routine); Ordered 06/18/20 Ordered By: Jeovanny Oneal Admission Data Admit Date/Time: 06/16/20 15:05 Attending Provider: Jeovanny Oneal Admit Provider: Margarita Vazquez Primary Care Provider: Etienne Flores Other Providers: Margarita Vazquez ; [place]
== END 2020-06-18 11:40 | disposition home or self-care (01) ==
LOC: EDBD → ED 12:50 → 2S 12:50 → SUATTDRO 15:05 → MERGE 15:05 → 2S 16:32